=== PATIENT | female | born 1995 | race Caucasian/White ===

== ENCOUNTER 2016-10-25 07:46 | Emergency (ER) | payer BC ==
[2016-10-25 07:57] VITALS: BP 116/62
[2016-10-25] MEDS ORDERED: Ibuprofen TAB* 600 MG PO ONE (08:01)
[2016-10-25] MEDS ORDERED: cefTRIAXone VIAL(*) 1,000 MG VIAL IM ONE (08:06)
[2016-10-25] MEDS ORDERED: Dexamethasone IV* 4 MG/ML 1 ML (4 MG) IM ONE (08:07)
[2016-10-25] MEDS ORDERED: Lidocaine 1% MPF* 2 ML VIAL ONE (08:13)
--- NOTE | 2016-10-25 08:13 | UC ---
Throat Pain/Nasal Killian HPI - HPI Summary HPI Summary: Cough, congestion and sore throat. left sided throat pain and left sided ear pain. - History of Current Complaint Chief Complaint: UCEar Stated Complaint: fever,ear complaint Time Seen by Provider: 10/25/16 08:01 Hx Obtained From: Patient Hx Last Menstrual Period: 10/21/16 Onset/Duration: Gradual Onset Severity: Moderate Cough: Nonproductive Associated Signs & Symptoms: Positive: Dysphagia, Hoarseness, Nasal Discharge, Fever, Rash. Negative: Drooling, Wheezing - Epiglottits Risk Factors Epiglottis Risk Factors: Negative - Allergies/Home Medications Allergies/Adverse Reactions: Allergies Allergy/AdvReac Type Severity Reaction Status Date / Time Amoxicillin Allergy Hives Verified 10/25/16 07:57 Home Medications: Home Medications Mesalamine (NF) [Lialda (NF)] 1.2 gm PO DAILY 10/25/16 [History Confirmed ] PMH/Surg Hx/FS Hx/Imm Hx Previously Healthy: No - ulcerative colitis on mesalamine. - Surgical History Surgical History: Yes Surgery Procedure, Year, and Place: wisdom teeth extraction. Panoscopy w. General anesthesia at [facility] - Family History Known Family History: Positive: None - Social History Alcohol Use: Occasionally Substance Use Type: None Smoking Status (MU): Never Smoked Tobacco - Immunization History Most Recent Influenza Vaccination: 02/2015 Vaccination Up to Date: Yes Review of Systems All Other Systems Reviewed And Are Negative: Yes Physical Exam Triage Information Reviewed: Yes Appearance: Well-Appearing, No Pain Distress, Well-Nourished Vital Signs: Initial Vital Signs Temp 102 F 10/25/16 07:52 Pulse 142 10/25/16 07:52 Resp 16 10/25/16 07:52 BP 116/62 10/25/16 07:52 Pulse Ox 98 10/25/16 07:52 Vital Signs Reviewed: Yes Eye Exam: Normal ENT: Positive: Pharyngeal erythema, Nasal congestion, TMs normal, Tonsillar swelling, Tonsillar exudate. Negative: Nasal drainage, Trismus, Muffled/hoarse voice Neck exam: Normal Neck: Positive: Supple, Enlarged Nodes @ - kat submandibular tenderness and lymph node enlargment.. Negative: Nuchal Rigidity Respiratory Exam: Normal Respiratory: Positive: Chest non-tender, Lungs clear, Normal breath sounds, No respiratory distress, No accessory muscle use. Negative: Respiratory distress, Decreased breath sounds, Crackles, Rhonchi, Stridor, Wheezing Cardiovascular: Positive: No Murmur, Pulses Normal, Brisk Capillary Refill, Tachycardia Abdominal Exam: Normal Abdomen Description: Positive: Nontender, No Organomegaly, Soft Musculoskeletal Exam: Normal Musculoskeletal: Positive: Strength Intact, ROM Intact, No Edema Neurological Exam: Normal Psychological Exam: Normal Skin Exam: Normal Throat Pain/Nasal Course/Dx - Course Course Of Treatment: URI with left sided tonsillitis. ear is perfect. no signs of abcess. She was told that she needs re eval in two days. she will return for any worsening. TYlenol, fluids, aggressive managment, and rest. - Differential Dx/Diagnosis Differential Diagnosis/HQI/PQRI: Epiglottitis, Foreign Body, Influenza, Laryngitis, Ivan's Angina, Mononucleosis, Otitis Media, Peritonsillar Abscess , Pharyngitis, Sinusitis, Tonsillitis, URI Provider Diagnoses: uri. tonsillitis. Discharge - Discharge Plan Condition: Fair Disposition: HOME Prescriptions: Cefdinir cap (NF) [Cefdinir 300 MG cap (NF)] 300 mg PO BID #20 cap Methylprednisolone [Medrol Dosepak 4 MG*] 4 mg PO .SEE ASHVIN INSTRUCTION #21 tab Patient Education Materials: Tonsillitis (ED) Forms: *Work Release Referrals: Desire Hernández [Medical Doctor] - 2 Days
[2016-10-25] MEDS ORDERED: Acetaminophen TAB* 325 MG PO ONE (08:24)
== END 2016-10-25 08:46 | disposition home or self-care (01) ==
LOC: UCCORT 07:46
DX: J06.9 Acute upper respiratory infection, unspecified (principal); J03.90 Acute tonsillitis, unspecified; Z88.1 Allergy status to other antibiotic agents
CPT/HCPCS: 96372; 99212; A9270-GY; G0463; J0696; J1100

== ENCOUNTER 2017-12-26 07:22 | Emergency (ER) | payer BC ==
[2017-12-26 07:41] VITALS: BP 131/68
--- NOTE | 2017-12-26 07:41 | UC ---
Throat Pain/Nasal Killian HPI - HPI Summary HPI Summary: 22-year-old female with history of ulcerative colitis presents with one-day history of sore throat and left ear pain. She denies any fever, shakes chills or nasal congestion. 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 She denies smoking. - History of Current Complaint Stated Complaint: LEFT EAR PAIN Time Seen by Provider: 12/26/17 07:26 Hx Obtained From: Patient Hx Last Menstrual Period: 10/21/16 ?: No - Allergies/Home Medications Allergies/Adverse Reactions: Allergies Allergy/AdvReac Type Severity Reaction Status Date / Time amoxicillin Allergy Rash Verified 12/26/17 07:36 clavulanic acid Allergy Rash Verified 12/26/17 07:36 Home Medications: Home Medications Acetaminophen [Acetaminophen Extra Strength] 1,500 mg PO Q8H PRN 12/26/17 [ History Confirmed 12/26/17] buPROPion SR TAB* [Wellbutrin SR TAB*] 50 mg PO DAILY 12/26/17 [History Confirmed 12/26/17] PMH/Surg Hx/FS Hx/Imm Hx Previously Healthy: No GI/ History: Other - Ulcerative colitis Other GI/ History: Ulcerative colitis - Surgical History Surgical History: Yes Surgery Procedure, Year, and Place: wisdom teeth extraction. Panoscopy w. General anesthesia at [facility] - Family History Known Family History: Positive: None, Other - Denies any recent ill contacts - Social History Occupation: Employed Full-time Alcohol Use: Occasionally Substance Use Type: None Smoking Status (MU): Never Smoked Tobacco - Immunization History Most Recent Influenza Vaccination: 02/2015 Vaccination Up to Date: Yes Review of Systems Constitutional: Negative Eyes: Negative ENT: Sore Throat, Ear Ache, Other - Denies sinus congestion and nasal discharge Respiratory: Negative Musculoskeletal: Negative All Other Systems Reviewed And Are Negative: Yes Physical Exam Triage Information Reviewed: Yes Appearance: Well-Appearing, No Pain Distress Vital Signs Reviewed: Yes Eyes: Positive: Conjunctiva Clear ENT: Positive: Pharyngeal erythema, TMs normal, Tonsillar exudate. Negative: Nasal congestion, Tonsillar swelling, Trismus, Muffled voice Dental Exam: Normal Neck: Positive: Supple, Nontender, No Lymphadenopathy Respiratory: Positive: Lungs clear Cardiovascular: Positive: RRR Musculoskeletal: Positive: Strength Intact, ROM Intact Neurological Exam: Normal Neurological: Positive: Alert Skin Exam: Normal Diagnostics - Laboratory Diagnostic Studies Completed/Ordered: Rapid strep: NEGATIVE Throat Pain/Nasal Course/Dx - Course Course Of Treatment: Rapid strep is negative. Culture pending. Dosed steroid here. F/U PMD. - Differential Dx/Diagnosis Provider Diagnoses: Acute tonsillitis Discharge - Sign-Out/Discharge Documenting (check all that apply): Patient Departure - Discharge Plan Condition: Improved Disposition: HOME Patient Education Materials: Tonsillitis (ED) Referrals: Efren Elaine DO [Primary Care Provider] - Additional Instructions: Call today to schedule follow up with your doctor. Tylenol as needed for discomfort. Return if worse, high fever, new symptoms or other concerns. Ibuprofen related medications is not recommended in patients with ulcerative colitis or Crohn's disease. - Billing Disposition and Condition Condition: IMPROVED Disposition: Home
[2017-12-26] MEDS ORDERED: Dexamethasone IV* 4 MG/ML 1 ML (4 MG) PO ONE (07:49)
== END 2017-12-26 07:56 | disposition home or self-care (01) ==
LOC: UCCORT 07:22
DX: J03.90 Acute tonsillitis, unspecified (principal); Z88.0 Allergy status to penicillin; Z88.8 Allergy status to other drugs, medicaments and biological substances
CPT/HCPCS: 87651; 99212; G0463; J1100